=== PATIENT | male | born 1995 | race American Indian/Alaskan Native ===

== ENCOUNTER 2020-02-02 12:21 | Emergency (ER) | payer SELFPAY ==
[2020-02-02 12:31] VITALS: BP 119/79
[2020-02-02] MEDS ORDERED: IPRATROPIUM 0.02% NEBU 2.5 ML IH ONE (13:25)
[2020-02-02] MEDS ORDERED: ALBUTEROL 2.5 MG/3 ML NEBU IH ONE (13:25)
[2020-02-02] MEDS ORDERED: dexAMETHasone 20 MG/5 ML VIAL IM ONE (13:25)
--- NOTE | 2020-02-02 13:36 | Emergency Department Report ---
ED Asthma HPI - General Chief Complaint: Adult Asthma Stated Complaint: ASTHMA, MED REFILL Time Seen by Provider: 02/02/20 13:21 Source: patient Mode of arrival: Ambulatory Limitations: No Limitations - History of Present Illness Initial Comments: This is a 24-year-old male nontoxic, well nourished in appearance, no acute signs of distress presents to the ED with c/o of acute on chronic asthma exacerbation. Patient stated she is out of her albuterol inhaler. Patient denies any cough. Patient denies any sick contact. Patient denies any recent travels, long car, recent hospital stays. Patient denies any calf pain or calf tenderness. Patient denies any chest pain, short of breath, fever, chills, nausea, vomiting, hemoptysis, numbness, tingling, headache or stiff neck. Past medical history includes asthma. MD Complaint: "asthma attack", shortness of breath, wheezing -: This morning Asthma History: childhood onset Severity: mild Context: none known Associated Symptoms: none - Related Data Current Asthma Therapy: none Previous Rx's Medication Instructions Recorded Last Taken Type ALBUTEROL NEB's [Proventil 0.083% 2.5 mg IH TID PRN #1 neb 02/02/20 Unknown Rx NEBS] Albuterol Sulfate [Albuterol 0.63% 0.63 mg IH TID PRN #1 box 02/02/20 Unknown Rx NEBS] Prednisone [predniSONE 10 mg 10 mg PO .TAPER #1 tab.ds.pk 02/02/20 Unknown Rx (6-Day Pack, 21 Tabs)] Allergies Allergy/AdvReac Type Severity Reaction Status Date / Time shellfish derived Allergy Swelling Verified 02/02/20 12:27 ED Review of Systems ROS: Stated complaint: ASTHMA, MED REFILL Other details as noted in HPI Constitutional: denies: chills, fever Eyes: denies: eye pain, eye discharge, vision change ENT: denies: ear pain, throat pain Respiratory: shortness of breath, wheezing. denies: cough Cardiovascular: denies: chest pain, palpitations Endocrine: no symptoms reported Gastrointestinal: denies: abdominal pain, nausea, diarrhea Genitourinary: denies: urgency, dysuria Musculoskeletal: denies: back pain, joint swelling, arthralgia Skin: denies: rash, lesions Neurological: denies: headache, weakness, paresthesias Psychiatric: denies: anxiety, depression Hematological/Lymphatic: denies: easy bleeding, easy bruising ED Past Medical Hx - Past Medical History Previous Medical History?: No - Surgical History Past Surgical History?: No - Social History Smoking Status: Never Smoker Substance Use Type: Alcohol - Medications Home Medications: Home Medications Medication Instructions Recorded Confirmed Last Taken Type ALBUTEROL NEB's [Proventil 0.083% 2.5 mg IH TID PRN #1 neb 02/02/20 Unknown Rx NEBS] Albuterol Sulfate [Albuterol 0.63% 0.63 mg IH TID PRN #1 box 02/02/20 Unknown Rx NEBS] Prednisone [predniSONE 10 mg 10 mg PO .TAPER #1 tab.ds.pk 02/02/20 Unknown Rx (6-Day Pack, 21 Tabs)] ED Physical Exam - General Limitations: No Limitations General appearance: alert, in no apparent distress - Head Head exam: Present: atraumatic, normocephalic - Eye Eye exam: Present: normal appearance - Neck Neck exam: Present: normal inspection, full ROM. Absent: tenderness, meningismus, lymphadenopathy - Respiratory Respiratory exam: Present: wheezes. Absent: respiratory distress, rales, rhonchi, stridor, chest wall tenderness, accessory muscle use, decreased breath sounds, prolonged expiratory - Cardiovascular Cardiovascular Exam: Present: regular rate, normal rhythm, normal heart sounds. Absent: irregular rhythm, systolic murmur, diastolic murmur, rubs, gallop - Rectal Rectal exam: Present: deferred - Extremities Exam Extremities exam: Present: normal inspection, full ROM - Back Exam Back exam: Present: normal inspection, full ROM. Absent: tenderness, CVA t enderness (R), CVA tenderness (L), muscle spasm, paraspinal tenderness, vertebral tenderness, rash noted - Neurological Exam Neurological exam: Present: alert, oriented X3, normal gait - Psychiatric Psychiatric exam: Present: normal affect, normal mood - Skin Skin exam: Present: warm, dry, intact, normal color. Absent: rash ED Course Vital Signs 02/02/20 02/02/20 12:28 13:38 Temperature 97.9 F Pulse Rate 93 H Pulse Rate [ 91 H Anterior Bilateral Throughout] Respiratory 18 Rate Respiratory 20 Rate [Anterior Bilateral Throughout] Blood Pressure 119/79 O2 Sat by Pulse 96 Oximetry - Reevaluation(s) Reevaluation #1: 02/02/20 13:36 Patient is speaking in full sentences with no signs of distress noted. ED Medical Decision Making - Medical Decision Making This is a 24-year-old male that presents with asthma exacerbation. Patient is stable and was examined by me. Patient is notified of the x-ray report with no questions noted by the patient. Patient did receive breathing treatment and steroids in the ED which patient the symptoms has resolved and subsided. Posttreatment and there is no wheezing upon auscultation. Patient is discharged with albuterol and prednisone. Patient was referred to Follow-up with a primary care doctor in 3-5 days or if symptoms worsen and continue return to emergency room as soon as possible. At time of discharge, the patient does not seem toxic or ill in appearance. No acute signs of distress noted. Patient agrees to discharge treatment plan of care. No further questions noted by the patient. This chart is dictated with using [employer] Critical care attestation.: If time is entered above; I have spent that time in minutes in the direct care of this critically ill patient, excluding procedure time. ED Disposition Clinical Impression: Acute asthma exacerbation Qualifiers: Asthma severity: mild Asthma persistence: intermittent Qualified Code(s): J45.21 - Mild intermittent asthma with (acute) exacerbation Disposition: -01 TO HOME OR SELFCARE Is pt being admited?: No Does the pt Need Aspirin: No Condition: Stable Instructions: Asthma (ED) Additional Instructions: Follow-up with a primary care doctor in 3-5 days or if symptoms worsen and continue return to emergency room as soon as possible. Prescriptions: Albuterol Sulfate [Albuterol 0.63% NEBS] 0.63 mg IH TID PRN #1 box PRN Reason: Wheezing Prednisone [predniSONE 10 mg (6-Day Pack, 21 Tabs)] 10 mg PO .TAPER #1 tab.ds.pk ALBUTEROL NEB's [Proventil 0.083% NEBS] 2.5 mg IH TID PRN #1 neb PRN Reason: Wheezing Referrals: PRIMARY CARE, [Primary Care Provider] - 3-5 Days BRAD HERNANDEZ MD [Staff Physician] - 3-5 Days Forms: Work/School Release Form(ED)
== END 2020-02-02 15:53 | disposition home or self-care (01) ==
LOC: ED 12:21
DX: J45.901 Unspecified asthma with (acute) exacerbation (principal); Z79.899 Other long term (current) drug therapy; Z91.013 Allergy to seafood
CPT/HCPCS: 94644; 96372; 99282; J1100

== ENCOUNTER 2020-03-23 12:35 | Emergency (ER) | payer SELFPAY ==
[2020-03-23 12:41] VITALS: BP 150/82
--- NOTE | 2020-03-23 12:44 | Emergency Department Report ---
Blank Doc - Documentation Documentation: 24-year-old male that presents with SOB with wheezing. Stated has been out of his albuterol medication. This initial assessment/diagnostic orders/clinical plan/treatment(s) is/are subject to change based on patient's health status, clinical progression and re- assessment by fellow clinical providers in the ED. Further treatment and workup at subsequent clinical providers discretion. Patient/guardians urged not to elope from the ED as their condition may be serious if not clinically assessed and managed. Initial orders include: 1- Patient sent to [facility] for further evaluation and treatment
[2020-03-23] MEDS ORDERED: ALBUTEROL 2.5 MG/3 ML NEBU IH ONE (14:39)
[2020-03-23] MEDS ORDERED: IPRATROPIUM 0.02% NEBU 2.5 ML IH ONE (14:39)
[2020-03-23] MEDS ORDERED: dexAMETHasone 20 MG/5 ML VIAL IV ONE (14:39)
--- NOTE | 2020-03-23 14:45 | Emergency Department Report ---
ED General Adult HPI - General Chief complaint: Adult Asthma Stated complaint: ASTHMA Time Seen by Provider: 03/23/20 12:42 Source: patient Mode of arrival: Ambulatory Limitations: No Limitations - History of Present Illness Initial comments: 24-year-old -[place] male patient presents with complaints of shortness of breath and wheezing x2 days. Patient states he has a history of asthma and this feels like an asthma exacerbation. He states his nebulizer treatments are working somewhat, however he has been out of his albuterol inhaler for a while. He denies any history of intubation, cough, chest pain, fever/chills/sweats, abdominal pain, nausea/vomiting/diarrhea, or any recent known sick contacts. - Related Data Previous Rx's Medication Instructions Recorded Last Taken Type ALBUTEROL NEB's [Proventil 0.083% 2.5 mg IH TID PRN #1 neb 02/02/20 Unknown Rx NEBS] Albuterol Sulfate [Albuterol 0.63% 0.63 mg IH TID PRN #1 box 02/02/20 Unknown Rx NEBS] Prednisone [predniSONE 10 mg 10 mg PO .TAPER #1 tab.ds.pk 02/02/20 Unknown Rx (6-Day Pack, 21 Tabs)] Albuterol Mdi (or & Nicu Only) 2 puff IH Q4H PRN 30 Days #8.5 gram 03/23/20 Unknown Rx [ProAir HFA Inhaler] predniSONE [Deltasone] 20 mg PO BID 2 Days #4 tab 03/23/20 Unknown Rx Allergies Allergy/AdvReac Type Severity Reaction Status Date / Time shellfish derived Allergy Swelling Verified 02/02/20 12:27 ED Review of Systems ROS: Stated complaint: ASTHMA Other details as noted in HPI Constitutional: denies: chills, diaphoresis, fever, malaise, weakness Respiratory: shortness of breath, wheezing. denies: cough Cardiovascular: denies: chest pain Endocrine: denies: excessive sweating Gastrointestinal: denies: abdominal pain, nausea, vomiting, diarrhea Neurological: denies: headache, numbness, paresthesias ED Past Medical Hx - Past Medical History Previous Medical History?: Yes Hx Asthma: Yes - Surgical History Past Surgical History?: No - Social History Smoking Status: Current Every Day Smoker Substance Use Type: None - Medications Home Medications: Home Medications Medication Instructions Recorded Confirmed Last Taken Type ALBUTEROL NEB's [Proventil 0.083% 2.5 mg IH TID PRN #1 neb 02/02/20 Unknown Rx NEBS] Albuterol Sulfate [Albuterol 0.63% 0.63 mg IH TID PRN #1 box 02/02/20 Unknown Rx NEBS] Prednisone [predniSONE 10 mg 10 mg PO .TAPER #1 tab.ds.pk 02/02/20 Unknown Rx (6-Day Pack, 21 Tabs)] Albuterol Mdi (or & Nicu Only) 2 puff IH Q4H PRN 30 Days #8.5 gram 03/23/20 Unknown Rx [ProAir HFA Inhaler] predniSONE [Deltasone] 20 mg PO BID 2 Days #4 tab 03/23/20 Unknown Rx ED Physical Exam - General Limitations: No Limitations General appearance: alert, in no apparent distress - Head Head exam: Present: atraumatic, normocephalic - Eye Eye exam: Present: normal appearance. Absent: scleral icterus - Neck Neck exam: Present: normal inspection - Respiratory Respiratory exam: Present: wheezes (Diffuse). Absent: respiratory distress, rales, rhonchi, stridor, chest wall tenderness, accessory muscle use - Cardiovascular Cardiovascular Exam: Present: regular rate, normal rhythm - Back Exam Back exam: Present: normal inspection - Neurological Exam Neurological exam: Present: alert, oriented X3 - Psychiatric Psychiatric exam: Present: normal affect, normal mood - Skin Skin exam: Present: warm, dry, intact, normal color. Absent: rash, cyanosis, diaphoretic ED Course Vital Signs 03/23/20 03/23/20 12:40 14:57 Temperature 98.9 F Pulse Rate 107 H Pulse Rate [ 90 Anterior Bilateral Throughout] Pulse Rate [ 89 Anterior Throughout] Respiratory 18 Rate Respiratory 18 Rate [Anterior Bilateral Throughout] Respiratory 18 Rate [Anterior Throughout] Blood Pressure 150/82 [Right] O2 Sat by Pulse 98 Oximetry ED Medical Decision Making - Medical Decision Making 24-year-old -[place] male patient presents with complaints of shortness of breath and wheezing x2 days. Patient states he has a history of asthma and this feels like an asthma exacerbation. He states his nebulizer treatments are working somewhat, however he has been out of his albuterol inhaler for a while. He denies any history of intubation, cough, chest pain, fever/chills/sweats, abdominal pain, nausea/vomiting/diarrhea, or any recent known sick contacts. Wheezing has significantly improved on reexamination after hour-long DuoNeb treatment. Patient states he is feeling well and denies any further shortness of breath. Vitals are stable he is stable for discharge home. Prescription for prednisone and albuterol inhaler given for home. Recommend follow-up with PCP in 3 to 5 days. Discussed signs and symptoms that should prompt immediate return to the emergency department in detail with patient who verbalizes understanding. Critical care attestation.: If time is entered above; I have spent that time in minutes in the direct care of this critically ill patient, excluding procedure time. ED Disposition Clinical Impression: Asthma exacerbation Qualifiers: Asthma severity: mild Asthma persistence: intermittent Qualified Code(s): J 45.21 - Mild intermittent asthma with (acute) exacerbation Disposition: TO HOME OR SELFCARE Is pt being admited?: No Condition: Stable Instructions: Asthma (ED) Prescriptions: predniSONE [Deltasone] 20 mg PO BID 2 Days #4 tab Albuterol Mdi (or & Nicu Only) [ProAir HFA Inhaler] 2 puff IH Q4H PRN 30 Days #8.5 gram PRN Reason: Shortness Of Breath Referrals: BRAD HERNANDEZ MD [Staff Physician] - 3-5 Days (Asthma )
== END 2020-03-23 16:32 | disposition home or self-care (01) ==
LOC: ED 12:35
DX: J45.901 Unspecified asthma with (acute) exacerbation (principal); J45.909 Unspecified asthma, uncomplicated; F17.200 Nicotine dependence, unspecified, uncomplicated
CPT/HCPCS: 94644; 96374; 99283; J1100

== ENCOUNTER 2020-05-28 12:22 | Emergency (ER) | payer OTHER ==
[2020-05-28] MEDS ORDERED: dexAMETHasone 20 MG/5 ML VIAL IM ONE (12:52)
[2020-05-28] MEDS ORDERED: IPRATROPIUM 0.02% NEBU 2.5 ML IH ONE (12:52)
[2020-05-28] MEDS ORDERED: ALBUTEROL 2.5 MG/3 ML NEBU IH ONE (12:52)
--- NOTE | 2020-05-28 13:01 | Emergency Department Report ---
ED Asthma HPI - General Chief Complaint: Adult Asthma Stated Complaint: ASTHMA; TROUBLE BREATHING Time Seen by Provider: 05/28/20 12:52 Source: patient Mode of arrival: Ambulatory Limitations: No Limitations - History of Present Illness Initial Comments: Patient is a 24-year-old male presents emergency room with complaints of an asthma exacerbation that began last night. He states that he ran out of his asthma medications yesterday. He states he uses an albuterol inhaler and a Symbicort inhaler and nebulizer treatments. He states he has associated wheezing and shortness of breath. He denies any cough, fever, nausea, vomiting, diarrhea, chest pain. He denies any sick contacts or recent travel. He denies any other past medical history except for his asthma. He has an allergy to shellfish. - Related Data Previous Rx's Medication Instructions Recorded Last Taken Type ALBUTEROL NEB's [Proventil 0.083% 2.5 mg IH TID PRN #1 neb 02/02/20 Unknown Rx NEBS] Prednisone [predniSONE 10 mg 10 mg PO .TAPER #1 tab.ds.pk 02/02/20 Unknown Rx (6-Day Pack, 21 Tabs)] Albuterol Mdi (or & Nicu Only) 2 puff IH Q4H PRN 30 Days #8.5 gram 03/23/20 Unknown Rx [ProAir HFA Inhaler] predniSONE [Deltasone] 20 mg PO BID 2 Days #4 tab 03/23/20 Unknown Rx Albuterol Sulfate [Albuterol 0.63% 0.63 mg IH TID PRN #1 box 05/28/20 Unknown Rx NEBS] Albuterol Sulfate [Proventil Hfa] 6.7 gm IH TID PRN #1 hfa.aer.ad 05/28/20 Unknown Rx Budesonide/Formoterol Fumarate 1 inhalation IH BID #1 hfa.aer.ad 05/28/20 Unknown Rx [Symbicort 80-4.5 Mcg Inhaler] Prednisone [predniSONE 10 mg 10 mg PO .TAPER #1 tab.ds.pk 05/28/20 Unknown Rx (6-Day Pack, 21 Tabs)] Allergies Allergy/AdvReac Type Severity Reaction Status Date / Time shellfish derived Allergy Swelling Verified 05/28/20 12:25 ED Review of Systems ROS: Stated complaint: ASTHMA; TROUBLE BREATHING Other details as noted in HPI Comment: All other systems reviewed and negative ED Past Medical Hx - Past Medical History Hx Asthma: Yes - Surgical History Past Surgical History?: No - Social History Smoking Status: Current Every Day Smoker Substance Use Type: None - Medications Home Medications: Home Medications Medication Instructions Recorded Confirmed Last Taken Type ALBUTEROL NEB's [Proventil 0.083% 2.5 mg IH TID PRN #1 neb 02/02/20 Unknown Rx NEBS] Prednisone [predniSONE 10 mg 10 mg PO .TAPER #1 tab.ds.pk 02/02/20 Unknown Rx (6-Day Pack, 21 Tabs)] Albuterol Mdi (or & Nicu Only) 2 puff IH Q4H PRN 30 Days #8.5 gram 03/23/20 Unknown Rx [ProAir HFA Inhaler] predniSONE [Deltasone] 20 mg PO BID 2 Days #4 tab 03/23/20 Unknown Rx Albuterol Sulfate [Albuterol 0.63% 0.63 mg IH TID PRN #1 box 05/28/20 Unknown Rx NEBS] Albuterol Sulfate [Proventil Hfa] 6.7 gm IH TID PRN #1 hfa.aer.ad 05/28/20 Unknown Rx Budesonide/Formoterol Fumarate 1 inhalation IH BID #1 hfa.aer.ad 05/28/20 Unknown Rx [Symbicort 80-4.5 Mcg Inhaler] Prednisone [predniSONE 10 mg 10 mg PO .TAPER #1 tab.ds.pk 05/28/20 Unknown Rx (6-Day Pack, 21 Tabs)] ED Physical Exam - General Limitations: No Limitations General appearance: alert, in no apparent distress - Head Head exam: Present: atraumatic, normocephalic - Eye Eye exam: Present: normal appearance - ENT ENT exam: Present: mucous membranes moist - Respiratory Respiratory exam: Present: wheezes (exipiratory and inspiratory bilaterally), prolonged expiratory. Absent: respiratory distress, rales, rhonchi, stridor, chest wall tenderness, accessory muscle use, decreased breath sounds - Cardiovascular Cardiovascular Exam: Present: regular rate, normal rhythm, normal heart sounds. Absent: systolic murmur, diastolic murmur, rubs, gallop - Neurological Exam Neurological exam: Present: alert, oriented X3 - Psychiatric Psychiatric exam: Present: normal affect, normal mood - Skin Skin exam: Present: warm, dry, intact ED Course Vital Signs 05/28/20 05/28/20 05/28/20 12:28 13:37 14:42 Temperature 98.0 F Pulse Rate 98 H 86 Pulse Rate [ 97 H Anterior Bilateral Throughout] Respiratory 20 16 Rate Respiratory 19 Rate [Anterior Bilateral Throughout] Blood Pressure 146/76 Blood Pressure 134/76 [Left] O2 Sat by Pulse 98 99 Oximetry ED Medical Decision Making - Lab Data Vital Signs 05/28/20 05/28/20 05/28/20 12:28 13:37 14:42 Temperature 98.0 F Pulse Rate 98 H 86 Pulse Rate [ 97 H Anterior Bilateral Throughout] Respiratory 20 16 Rate Respiratory 19 Rate [Anterior Bilateral Throughout] Blood Pressure 146/76 Blood Pressure 134/76 [Left] O2 Sat by Pulse 98 99 Oximetry - Medical Decision Making Patient is a 24-year-old male presents emergency room with complaints of an asthma exacerbation that began last night. He states that he ran out of his asthma medications yesterday. He states he uses an albuterol inhaler and a Symbicort inhaler and nebulizer treatments. He states he has associated wheezing and shortness of breath. He denies any cough, fever, nausea, vomiting, diarrhea, chest pain. He denies any sick contacts or recent travel. He denies any other past medical history except for his asthma. He has an allergy to shellfish. VSS. On exam patient has expiratory and inspiratory wheezing bilaterally, no respiratory distress, no accessory muscle use. Neb treatment and steroids IM while in the emergency department and symptoms completely improved and he was feeling much better and ready to go home. On reexamination breath sounds are clear bilaterally, no wheezing, no rales, no rhonchi. He has no clinical signs of bacterial pneumonia or bacterial bronchitis. Symptoms appear consistent with asthma exacerbation. Patient given refill of his home medications and a prednisone taper. Advised patient Please use medication as prescribed. Follow-up with your primary care doctor. Return to emergency room for any new or worsening symptoms. Critical care attestation.: If time is entered above; I have spent that time in minutes in the direct care of this critically ill patient, excluding procedure time. ED Disposition Clinical Impression: Asthma exacerbation Qualifiers: Asthma severity: unspecified severity Asthma persistence: unspecified Qualified Code(s): J45.901 - Unspecified asthma with (acute) exacerbation Disposition: DC-01 TO HOME OR SELFCARE Is pt being admited?: No Does the pt Need Aspirin: No Condition: Stable Instructions: Asthma, Adult Additional Instructions: Please use medication as prescribed. Follow-up with your primary care doctor. Return to emergency room for any new or worsening symptoms. Prescriptions: Albuterol Sulfate [Albuterol 0.63% NEBS] 0.63 mg IH TID PRN #1 box PRN Reason: Wheezing Prednisone [predniSONE 10 mg (6-Day Pack, 21 Tabs)] 10 mg PO .TAPER #1 tab.ds.pk Albuterol Sulfate [Proventil Hfa] 6.7 gm IH TID PRN #1 hfa.aer.ad PRN Reason: wheezing/shortness of breath Budesonide/Formoterol Fumarate [Symbicort 80-4.5 Mcg Inhaler] 1 inhalation IH BID #1 hfa.aer.ad Referrals: PRIMARY MD MARIA FERNANDA [Primary Care Provider] - 2-3 Days BRAD HERNANDEZ MD [Staff Physician] - 2-3 Days [facility] [Provider Group] - 2-3 Days Time of Disposition: 14:04 Print Language: HEBREW
[2020-05-28 14:43] VITALS: BP 134/76
== END 2020-05-28 14:42 | disposition home or self-care (01) ==
LOC: ED 12:22
DX: J45.901 Unspecified asthma with (acute) exacerbation (principal); F17.200 Nicotine dependence, unspecified, uncomplicated; Z79.899 Other long term (current) drug therapy; Z91.013 Allergy to seafood
CPT/HCPCS: 94640; 96372; 99282; J1100; 94644

== ENCOUNTER 2020-07-12 00:35 | Emergency (ER) | payer OTHER ==
[2020-07-12] MEDS ORDERED: predniSONE 50 MG TAB PO STA (01:21)
[2020-07-12] MEDS ORDERED: ALBUTEROL 2.5 MG/3 ML NEBU IH ONE (01:21)
--- NOTE | 2020-07-12 01:24 | Emergency Department Report ---
ED Asthma HPI - General Chief Complaint: Adult Asthma Stated Complaint: ASTHMA Time Seen by Provider: 07/12/20 01:21 Source: patient Mode of arrival: Ambulatory Limitations: No Limitations - History of Present Illness Initial Comments: 24-year-old [place] male with asthma department complaining of a spontaneous flareup of his asthma this evening and was not able to treated at home due to being out of his medications. Reports no fever, chills, sweats. No hemoptysis hematemesis hematochezia. No nausea, no vomiting, no abdominal pain, no no diarrhea no known contact with the coronavirus MD Complaint: "asthma attack", wheezing Asthma History: childhood onset, history of frequent attac Severity: mild, moderate Context: ran out of meds - Related Data Previous Rx's Medication Instructions Recorded Last Taken Type ALBUTEROL NEB's [Proventil 0.083% 2.5 mg IH TID PRN #1 neb 02/02/20 Unknown Rx NEBS] Prednisone [predniSONE 10 mg 10 mg PO .TAPER #1 tab.ds.pk 02/02/20 Unknown Rx (6-Day Pack, 21 Tabs)] Albuterol Mdi (or & Nicu Only) 2 puff IH Q4H PRN 30 Days #8.5 gram 03/23/20 Unknown Rx [ProAir HFA Inhaler] predniSONE [Deltasone] 20 mg PO BID 2 Days #4 tab 03/23/20 Unknown Rx Albuterol Sulfate [Albuterol 0.63% 0.63 mg IH TID PRN #1 box 05/28/20 Unknown Rx NEBS] Albuterol Sulfate [Proventil Hfa] 6.7 gm IH TID PRN #1 hfa.aer.ad 05/28/20 Unknown Rx Budesonide/Formoterol Fumarate 1 inhalation IH BID #1 hfa.aer.ad 05/28/20 Unknown Rx [Symbicort 80-4.5 Mcg Inhaler] Prednisone [predniSONE 10 mg 10 mg PO .TAPER #1 tab.ds.pk 05/28/20 Unknown Rx (6-Day Pack, 21 Tabs)] Albuterol Mdi (or & Nicu Only) 2 puff IH QID PRN #1 inhalation 07/12/20 Unknown Rx [ProAir HFA Inhaler] Montelukast [Singulair] 10 mg PO QPM #14 tablet 07/12/20 Unknown Rx predniSONE [Deltasone] 50 mg PO QDAY #5 tab 07/12/20 Unknown Rx Allergies Allergy/AdvReac Type Severity Reaction Status Date / Time shellfish derived Allergy Swelling Verified 05/28/20 12:25 ED Review of Systems ROS: Stated complaint: ASTHMA Other details as noted in HPI Comment: All other systems reviewed and negative ED Past Medical Hx - Past Medical History Previous Medical History?: Yes Hx Asthma: Yes - Surgical History Past Surgical History?: No - Social History Smoking Status: Never Smoker Substance Use Type: None - Medications Home Medications: Home Medications Medication Instructions Recorded Confirmed Last Taken Type ALBUTEROL NEB's [Proventil 0.083% 2.5 mg IH TID PRN #1 neb 02/02/20 Unknown Rx NEBS] Prednisone [predniSONE 10 mg 10 mg PO .TAPER #1 tab.ds.pk 02/02/20 Unknown Rx (6-Day Pack, 21 Tabs)] Albuterol Mdi (or & Nicu Only) 2 puff IH Q4H PRN 30 Days #8.5 gram 03/23/20 Unknown Rx [ProAir HFA Inhaler] predniSONE [Deltasone] 20 mg PO BID 2 Days #4 tab 03/23/20 Unknown Rx Albuterol Sulfate [Albuterol 0.63% 0.63 mg IH TID PRN #1 box 05/28/20 Unknown Rx NEBS] Albuterol Sulfate [Proventil Hfa] 6.7 gm IH TID PRN #1 hfa.aer.ad 05/28/20 Unknown Rx Budesonide/Formoterol Fumarate 1 inhalation IH BID #1 hfa.aer.ad 05/28/20 Unknown Rx [Symbicort 80-4.5 Mcg Inhaler] Prednisone [predniSONE 10 mg 10 mg PO .TAPER #1 tab.ds.pk 05/28/20 Unknown Rx (6-Day Pack, 21 Tabs)] Albuterol Mdi (or & Nicu Only) 2 puff IH QID PRN #1 inhalation 07/12/20 Unknown Rx [ProAir HFA Inhaler] Montelukast [Singulair] 10 mg PO QPM #14 tablet 07/12/20 Unknown Rx predniSONE [Deltasone] 50 mg PO QDAY #5 tab 07/12/20 Unknown Rx ED Physical Exam - General Limitations: No Limitations General appearance: alert, in no apparent distress - Head Head exam: Present: atraumatic, normocephalic - Eye Eye exam: Present: normal appearance - ENT ENT exam: Present: mucous membranes moist - Neck Neck exam: Present: normal inspection - Respiratory Respiratory exam: Present: normal lung sounds bilaterally, wheezes. Absent: respiratory distress - Cardiovascular Cardiovascular Exam: Present: regular rate, normal rhythm. Absent: systolic murmur, diastolic murmur, rubs, gallop - GI/Abdominal GI/Abdominal exam: Present: soft, normal bowel sounds - Rectal Rectal exam: Present: deferred - Extremities Exam Extremities exam: Present: normal inspection - Back Exam Back exam: Present: normal inspection - Neurological Exam Neurological exam: Present: alert, oriented X3 - Psychiatric Psychiatric exam: Present: normal affect, normal mood - Skin Skin exam: Present: warm, dry, intact, normal color. Absent: rash ED Course Vital Signs 07/12/20 01:01 Temperature 98.0 F Pulse Rate 104 H Respiratory 20 Rate Blood Pressure 168/94 O2 Sat by Pulse 99 Oximetry Critical care attestation.: If time is entered above; I have spent that time in minutes in the direct care of this critically ill patient, excluding procedure time. ED Disposition Clinical Impression: Asthma, Wheeze Is pt being admited?: No Does the pt Need Aspirin: No Condition: Stable Instructions: Asthma (ED), Asthma, Adult, How to Use a Nebulizer, Adult, Asthma, Adult, [id number], Peak Flow Meter
[2020-07-12 03:14] VITALS: BP 146/88
== END 2020-07-12 02:50 | disposition home or self-care (01) ==
LOC: ED 00:35
DX: J45.909 Unspecified asthma, uncomplicated (principal); Z79.899 Other long term (current) drug therapy; Z91.013 Allergy to seafood
CPT/HCPCS: 94640; 99282; J7512; 94644

== ENCOUNTER 2020-08-11 03:25 | Emergency (ER) | payer OTHER ==
[2020-08-11 03:42] VITALS: BP 131/73
--- NOTE | 2020-08-11 03:42 | Emergency Department Report ---
ED Asthma HPI - General Chief Complaint: Dyspnea/Respdistress Stated Complaint: ASTHMA PUI?: No Time Seen by Provider: 08/11/20 03:37 Source: patient, EMS ( EMS documentation not available at time of chart dictation ), RN notes reviewed, old records reviewed Mode of arrival: Stretcher Limitations: No Limitations - History of Present Illness Initial Comments: The patient was evaluated in the emergency department for symptoms described in the history of present illness. He/she was evaluated in the context of the global COVID-19 pandemic, which necessitated consideration that the patient might be at risk for infection with the virus that causes COVID-19. Institutional protocols and algorithms that pertain to the evaluation of patients at risk for COVID-19 are in a state of rapid change based on information released by regulatory bodies including the CDC and federal and state organizations. These policies and algorithms were followed during the patient's care in the emergency department. Please note that these policies, procedures and recommendations changed on a rapid basis. This is a 24-year-old gentleman, who is not known to myself previously. He has a history of asthma, reactive airway disease, and occasionally smokes Black and milds. Patient presents to the ER with a complaint of resolved asthma attack. He was at home, and began to feel like he was short of breath and having wheezing. He took some nebulizer therapy at home, but was still symptomatic, and thus contacted emergency medical services, who administered additional albuterol. He did not receive steroids. His symptoms are basically resolved at this time. He denies travel, surgery, DVT and pulmonary embolism risk factors. He also denies loss of taste and smell. He feels like he is back to baseline. He is currently watching TV on his cellular phone, and face timing on his cellular phone, and does not appear to be in any acute distress. MD Complaint: "asthma attack", shortness of breath, wheezing -: Sudden Asthma History: childhood onset, history of frequent attac, history of prior ED visit Severity: mild Context: other (Patient thinks he may have been exposed to dust in his house) Associated Symptoms: other (Shortness of breath wheezing) Treatments Prior to Arrival: inhaled bronchodilator - Related Data Previous Rx's Medication Instructions Recorded Last Taken Type Prednisone [predniSONE 10 mg 10 mg PO .TAPER #1 tab.ds.pk 02/02/20 Unknown Rx (6-Day Pack, 21 Tabs)] predniSONE [Deltasone] 20 mg PO BID 2 Days #4 tab 03/23/20 Unknown Rx Albuterol Sulfate [Albuterol 0.63% 0.63 mg IH TID PRN #1 box 05/28/20 Unknown Rx NEBS] Albuterol Sulfate [Proventil Hfa] 6.7 gm IH TID PRN #1 hfa.aer.ad 05/28/20 Unknown Rx Prednisone [predniSONE 10 mg 10 mg PO .TAPER #1 tab.ds.pk 05/28/20 Unknown Rx (6-Day Pack, 21 Tabs)] Albuterol Mdi (or & Nicu Only) 2 puff IH QID PRN #1 inhalation 07/12/20 Unknown Rx [ProAir HFA Inhaler] predniSONE [Deltasone] 50 mg PO QDAY #5 tab 07/12/20 Unknown Rx ALBUTEROL NEB's [Proventil 0.083% 2.5 mg IH TID PRN #1 neb 08/11/20 Unknown Rx NEBS] Albuterol Mdi (or & Nicu Only) 2 puff IH Q4H PRN 30 Days #8.5 gram 08/11/20 Unknown Rx [ProAir HFA Inhaler] Budesonide/Formoterol Fumarate 1 inhalation IH BID #1 hfa.aer.ad 08/11/20 Unknown Rx [Symbicort 80-4.5 Mcg Inhaler] Montelukast [Singulair] 10 mg PO QPM #14 tablet 08/11/20 Unknown Rx Allergies Allergy/AdvReac Type Severity Reaction Status Date / Time shellfish derived Allergy Swelling Verified 05/28/20 12:25 ED Review of Systems ROS: Stated complaint: ASTHMA Other details as noted in HPI Constitutional: other (Denies loss of taste and smell). denies: fever Eyes: denies: eye discharge ENT: congestion Respiratory: shortness of breath (Now resolved), wheezing (Now resolved) Cardiovascular: denies: chest pain, syncope Gastrointestinal: denies: nausea, vomiting, hematemesis, melena, hematochezia Genitourinary: denies: dysuria Musculoskeletal: denies: back pain Psychiatric: anxiety Hematological/Lymphatic: denies: easy bleeding ED Past Medical Hx - Past Medical History Previous Medical History?: Yes Hx Asthma: Yes - Surgical History Past Surgical History?: No - Social History Smoking Status: Current Some Day Smoker Substance Use Type: None - Medications Home Medications: Home Medications Medication Instructions Recorded Confirmed Last Taken Type Prednisone [predniSONE 10 mg 10 mg PO .TAPER #1 tab.ds.pk 02/02/20 Unknown Rx (6-Day Pack, 21 Tabs)] predniSONE [Deltasone] 20 mg PO BID 2 Days #4 tab 03/23/20 Unknown Rx Albuterol Sulfate [Albuterol 0.63% 0.63 mg IH TID PRN #1 box 05/28/20 Unknown Rx NEBS] Albuterol Sulfate [Proventil Hfa] 6.7 gm IH TID PRN #1 hfa.aer.ad 05/28/20 Unknown Rx Prednisone [predniSONE 10 mg 10 mg PO .TAPER #1 tab.ds.pk 05/28/20 Unknown Rx (6-Day Pack, 21 Tabs)] Albuterol Mdi (or & Nicu Only) 2 puff IH QID PRN #1 inhalation 07/12/20 Unknown Rx [ProAir HFA Inhaler] predniSONE [Deltasone] 50 mg PO QDAY #5 tab 07/12/20 Unknown Rx ALBUTEROL NEB's [Proventil 0.083% 2.5 mg IH TID PRN #1 neb 08/11/20 Unknown Rx NEBS] Albuterol Mdi (or & Nicu Only) 2 puff IH Q4H PRN 30 Days #8.5 gram 08/11/20 Unknown Rx [ProAir HFA Inhaler] Budesonide/Formoterol Fumarate 1 inhalation IH BID #1 hfa.aer.ad 08/11/20 Unknown Rx [Symbicort 80-4.5 Mcg Inhaler] Montelukast [Singulair] 10 mg PO QPM #14 tablet 08/11/20 Unknown Rx ED Physical Exam - General Limitations: No Limitations General appearance: alert, anxious, obese - Head Head exam: Present: atraumatic, normocephalic - Eye Eye exam: Present: normal appearance, EOMI. Absent: nystagmus - ENT ENT exam: Present: normal exam, normal orophraynx, mucous membranes moist, normal external ear exam - Neck Neck exam: Present: normal inspection, full ROM. Absent: tenderness, meningismus - Respiratory Respiratory exam: Present: normal lung sounds bilaterally. Absent: respiratory distress, wheezes, rales, rhonchi, stridor, decreased breath sounds - Cardiovascular Cardiovascular Exam: Present: normal rhythm, tachycardia, normal heart sounds. Absent: systolic murmur, diastolic murmur, rubs, gallop - GI/Abdominal GI/Abdominal exam: Present: soft. Absent: distended, tenderness, guarding, rebound, rigid, pulsatile mass - Rectal Rectal exam: Present: deferred - Extremities Exam Extremities exam: Present: normal inspection, full ROM, other (2+ pulses noted in the bilateral upper and lower extremities. There is no palpable cord. negative Homans sign. Muscular compartments are soft. The pelvis is stable.). Absent: pedal edema, calf tenderness - Back Exam Back exam: Present: normal inspection. Absent: tenderness, CVA tenderness (R), CVA tenderness (L), paraspinal tenderness, vertebral tenderness - Neurological Exam Neurological exam: Present: alert, normal gait, other (No facial droop. Tongue midline. Extraocular movements intact bilaterally. Facial sensation intact to light touch in V1, V2, V3 distribution bilaterally. 5 and a 5 strength in 4 extremities. Sensation intact to light touch in 4 extremities.). Absent: motor sensory deficit - Psychiatric Psychiatric exam: Present: anxious - Skin Skin exam: Present: warm, dry, intact, normal color. Absent: rash ED Course Vital Signs 08/11/20 03:36 Temperature 98.2 F Pulse Rate 115 H Respiratory 22 Rate Blood Pressure 131/73 [Left] O2 Sat by Pulse 96 Oximetry - Pulse Oximetry Interpretation Digit-Finger Initial Pulse Oximetry Readin O2 Sat by Pulse Oximetry: 99 Actions Taken: none ED Medical Decision Making - Lab Data Vital Signs 08/11/20 03:36 Temperature 98.2 F Pulse Rate 115 H Respiratory 22 Rate Blood Pressure 131/73 [Left] O2 Sat by Pulse 96 Oximetry - Medical Decision Making Differential diagnosis, including but not limited to: Reactive airways disease, asthma exacerbation, Assessment and plan: 24-year-old gentleman, who is tachycardic likely secondary to receiving 12.5 mg total albuterol recently, who is not hypoxic, not tach ypneic, without active wheezing or respiratory distress, currently playing on his cellular phone, who denies DVT and pulmonary embolism risk factors, who is low risk by Wells criteria for pulmonary embolism, with a complaint of painless wheezing and shortness of breath, which is now resolved. Physical exam unremarkable with the exception of mild tachycardia, likely secondary to albuterol. Do not see indication for steroids, or additional albuterol therapy at this time. Patient tolerating oral feeds. Patient counseled to discontinue tobacco consumption. Patient counseled that he may have allergies at home which are triggering his attacks, we will discharge with albuterol, and instructions to follow-up with an outpatient primary care doctor/tool planer set up operator. Return precautions are reviewed. Critical care attestation.: If time is entered above; I have spent that time in minutes in the direct care of this critically ill patient, excluding procedure time. ED Disposition Clinical Impression: Reactive airway disease Qualifiers: Asthma severity: mild Asthma persistence: intermittent Asthma complication type: uncomplicated Qualified Code(s): J45.20 - Mild intermittent asthma, uncomplicated Disposition: - TO HOME OR SELFCARE Is pt being admited?: No Does the pt Need Aspirin: No Condition: Good Instructions: Asthma, Adult Additional Instructions: Advance diet as tolerated. Drink plenty of fluids. Take the medications as needed/directed. Please follow-up with a primary care doctor or tool planer set up operator within the next 2 weeks. Avoid consumption of tobacco, black and milds, and all smoke products. Please return to the emergency room right away with new pain, worsened pain, migration of pain, projectile vomiting, change in mental status, confusion, inability to tolerate liquid feeds, new, worsened or different symptoms not present on the initial emergency room evaluation. Referrals: ROBERT SORENSEN MD [Staff Physician] - 3-5 Days BRAD HERNANDEZ MD [Staff Physician] - 3-5 Days Forms: Work/School Release Form(ED)
== END 2020-08-11 04:48 | disposition home or self-care (01) ==
LOC: ED 03:25
DX: J45.909 Unspecified asthma, uncomplicated (principal); F17.200 Nicotine dependence, unspecified, uncomplicated; Z79.899 Other long term (current) drug therapy; Z91.013 Allergy to seafood
CPT/HCPCS: 99283

== ENCOUNTER 2020-10-03 04:19 | Emergency (ER) | payer OTHER ==
--- NOTE | 2020-10-03 05:08 | XRay Report ---
CHEST 2 VIEWS INDICATION / CLINICAL INFORMATION: Difficulty in breathing. COMPARISON: None available. FINDINGS: SUPPORT DEVICES: None. HEART / MEDIASTINUM: No significant abnormality. LUNGS / PLEURA: Clear lungs. No significant pleural effusion. No pneumothorax. ADDITIONAL FINDINGS: No significant additional findings. IMPRESSION: 1. No acute abnormality of the chest. Signer Name: Deniz Marrufo MD Signed: 10/03/2020 5:03 AM Workstation Name: [id number]
--- NOTE | 2020-10-03 05:16 | Emergency Department Report ---
ED Asthma HPI - General Chief Complaint: Dyspnea/Respdistress Stated Complaint: ANXIETY;RAPID HEART RATE; ASTHMA Time Seen by Provider: 10/03/20 05:10 Source: patient Mode of arrival: Ambulatory Limitations: No Limitations - History of Present Illness Initial Comments: 24-year-old -[place] male with a past medical history of asthma presents emerged department complaining of having what he feels was an asthma exacerbation with some vague discomfort to his left chest/lung wheezing which worsens with deep breath presents emergency department seeking evaluation. States that he took his inhaler but did not have a change in his symptoms and was worried something may be underlying needed further evaluation. Reports no hemoptysis, hematemesis hematochezia. Reports no fever, chills, sweats. Reports no sputum production. No foreign travel, no known sick contacts. MD Complaint: shortness of breath - Related Data Previous Rx's Medication Instructions Recorded Last Taken Type Prednisone [predniSONE 10 mg 10 mg PO .TAPER #1 tab.ds.pk 02/02/20 Unknown Rx (6-Day Pack, 21 Tabs)] Albuterol Sulfate [Albuterol 0.63% 0.63 mg IH TID PRN #1 box 05/28/20 Unknown Rx NEBS] Albuterol Sulfate [Proventil Hfa] 6.7 gm IH TID PRN #1 hfa.aer.ad 05/28/20 Unknown Rx Prednisone [predniSONE 10 mg 10 mg PO .TAPER #1 tab.ds.pk 05/28/20 Unknown Rx (6-Day Pack, 21 Tabs)] Albuterol Mdi (or & Nicu Only) 2 puff IH QID PRN #1 inhalation 07/12/20 Unknown Rx [ProAir HFA Inhaler] predniSONE [Deltasone] 50 mg PO QDAY #5 tab 07/12/20 Unknown Rx ALBUTEROL NEB's [Proventil 0.083% 2.5 mg IH TID PRN #1 neb 08/11/20 Unknown Rx NEBS] Albuterol Mdi (or & Nicu Only) 2 puff IH Q4H PRN 30 Days #8.5 gram 08/11/20 Unknown Rx [ProAir HFA Inhaler] Montelukast [Singulair] 10 mg PO QPM #14 tablet 08/11/20 Unknown Rx Budesonide/Formoterol Fumarate 1 inhalation IH BID #1 hfa.aer.ad 10/03/20 Unknown Rx [Symbicort 80-4.5 Mcg Inhaler] predniSONE [Deltasone] 20 mg PO BID 2 Days #4 tab 10/03/20 Unknown Rx Allergies Allergy/AdvReac Type Severity Reaction Status Date / Time shellfish derived Allergy Swelling Verified 05/28/20 12:25 ED Review of Systems ROS: Stated complaint: ANXIETY;RAPID HEART RATE; ASTHMA Other details as noted in HPI Comment: All other systems reviewed and negative ED Past Medical Hx - Past Medical History Hx Asthma: Yes - Surgical History Past Surgical History?: No - Social History Smoking Status: Never Smoker Substance Use Type: None - Medications Home Medications: Home Medications Medication Instructions Recorded Confirmed Last Taken Type Prednisone [predniSONE 10 mg 10 mg PO .TAPER #1 tab.ds.pk 02/02/20 Unknown Rx (6-Day Pack, 21 Tabs)] Albuterol Sulfate [Albuterol 0.63% 0.63 mg IH TID PRN #1 box 05/28/20 Unknown Rx NEBS] Albuterol Sulfate [Proventil Hfa] 6.7 gm IH TID PRN #1 hfa.aer.ad 05/28/20 Unknown Rx Prednisone [predniSONE 10 mg 10 mg PO .TAPER #1 tab.ds.pk 05/28/20 Unknown Rx (6-Day Pack, 21 Tabs)] Albuterol Mdi (or & Nicu Only) 2 puff IH QID PRN #1 inhalation 07/12/20 Unknown Rx [ProAir HFA Inhaler] predniSONE [Deltasone] 50 mg PO QDAY #5 tab 07/12/20 Unknown Rx ALBUTEROL NEB's [Proventil 0.083% 2.5 mg IH TID PRN #1 neb 08/11/20 Unknown Rx NEBS] Albuterol Mdi (or & Nicu Only) 2 puff IH Q4H PRN 30 Days #8.5 gram 08/11/20 Unknown Rx [ProAir HFA Inhaler] Montelukast [Singulair] 10 mg PO QPM #14 tablet 08/11/20 Unknown Rx Budesonide/Formoterol Fumarate 1 inhalation IH BID #1 hfa.aer.ad 10/03/20 Unknown Rx [Symbicort 80-4.5 Mcg Inhaler] predniSONE [Deltasone] 20 mg PO BID 2 Days #4 tab 10/03/20 Unknown Rx ED Physical Exam - General Limitations: No Limitations General appearance: alert, in no apparent distress - Head Head exam: Present: atraumatic, normocephalic - Eye Eye exam: Present: normal appearance, PERRL, EOMI - ENT ENT exam: Present: mucous membranes moist - Neck Neck exam: Present: normal inspection - Respiratory Respiratory exam: Present: normal lung sounds bilaterally. Absent: respiratory distress, wheezes, rales, rhonchi, stridor, chest wall tenderness, accessory muscle use, decreased breath sounds, prolonged expiratory - Cardiovascular Cardiovascular Exam: Present: regular rate, normal rhythm. Absent: systolic murmur, diastolic murmur, rubs, gallop - GI/Abdominal GI/Abdominal exam: Present: soft, normal bowel sounds - Rectal Rectal exam: Present: deferred - Extremities Exam Extremities exam: Present: normal inspection - Back Exam Back exam: Present: normal inspection - Neurological Exam Neurological exam: Present: alert, oriented X3 - Psychiatric Psychiatric exam: Present: normal affect, normal mood - Skin Skin exam: Present: warm, dry, intact, normal color. Absent: rash ED Course Vital Signs 10/03/20 04:34 Temperature 97.9 F Pulse Rate 107 H Respiratory 18 Rate Blood Pressure 129/82 O2 Sat by Pulse 99 Oximetry ED Medical Decision Making - Radiology Data Radiology results: report reviewed Chest x-ray normal - Medical Decision Making This patient presents with dyspnea most likely secondary to asthma. Differential diagnosis includes anxiety, asthma, bronchitis, pleuritic pulmonary issue, viral syndrome. Presentation not consistent with acute cardiac etiologies to include , CHF, pericardial effusion/tamponade. Presentation not consistent with acute respiratory etiologies to include acute pulmonary embolism ( PERC negative), pneumothorax, asthma, COPD exacerbation, infectious etiology such as pneumonia. The presentation also not consistent with known cardiopulmonary causes to include toxic syndrome, metabolic etiology such as acidemia or electrolyte derangements, sepsis, neurologic causes. Patient was PERC negative due to heart rate being in the 80s on my evaluation Critical care attestation.: If time is entered above; I have spent that time in minutes in the direct care of this critically ill patient, excluding procedure time. ED Disposition Clinical Impression: SOB (shortness of breath) Disposition: [id number] TO HOME OR SELFCARE Is pt being admited?: No Does the pt Need Aspirin: No Condition: Stable Instructions: Cough, Adult, [id number], Shortness of Breath, Adult, Generalized Anxiety Disorder, Adult, Panic Attack, [id number] Prescriptions: predniSONE [Deltasone] 20 mg PO BID 2 Days #4 tab Budesonide/Formoterol Fumarate [Symbicort 80-4.5 Mcg Inhaler] 1 inhalation IH BID #1 hfa.aer.ad Referrals: PRIMARY CARE, [Primary Care Provider] - 3-5 Days [facility] [Provider Group] - 3-5 Days
[2020-10-03 06:07] VITALS: BP 134/77
== END 2020-10-03 06:10 | disposition home or self-care (01) ==
LOC: ED 04:19
DX: R06.02 Shortness of breath (principal); J45.909 Unspecified asthma, uncomplicated; Z79.899 Other long term (current) drug therapy; Z91.013 Allergy to seafood
CPT/HCPCS: 71046; 82962

== ENCOUNTER 2021-10-03 09:30 | Emergency (ER) | payer SELFPAY | END 2021-10-03 13:00 | disposition left against medical advice (07) | LOC: ED 09:30 | DX: J45.909 Unspecified asthma, uncomplicated (principal); Z53.21 Procedure and treatment not carried out due to patient leaving prior to being seen by health care provider ==